=== PATIENT | male | born 1965 | race African-American/Black ===

== ENCOUNTER 2020-08-25 14:05 | Emergency (ER) | payer BC ==
[~2020-08-25] VITALS: Ht 185.4 cm; Wt 93.0 kg
--- NOTE | 2020-08-25 15:05 | RAD ---
Pelvis left hip HISTORY: Left hip pain with popping and grinding AP view the pelvis obtained as well as AP and frog-leg views left hip There is prior right hip total arthroplasty. There is moderate degenerative changes of the L4-5 lumba r spine. The remaining visualized osseous structures appear normal. IMPRESSION: No acute findings. Electronically signed by: Diaz Solorio III, MD (08/25/2020 3:02 PM) [facility]
[2020-08-25] MEDS ORDERED: HYDR-2761 PO (15:29)
--- NOTE | 2020-08-25 15:29 | ED.ADGEN ---
Past Medical History Past Medical History: No Pertinent History Past Surgical History: Knee Replacement Smoking Status: Never Smoker Alcohol Use: None General Adult EDM: Chief Complaint: HIP PAIN HPI: HPI: Patient is a 54 year old male who presents emergency department with complaints of left hip pain. Patient states that his hip has been aching a lot recently. He states that he feels it pop and grind at times. He denies any new injury or fall. The patient denies any saddle anesthesia. He states that at times the lateral aspect of his left foot feels numb he currently denies any decreased sensation. The patient denies any swelling or bruising to the affected area. He currently rates the pain a 10 out of 10 on the pain scale, he denies any alleviating factors, the pain is worse with movement. Review of Systems: Review of Systems: Complete ROS is negative unless otherwise noted in HPI. Allergies: Allergies: Allergies Coded Allergies Type Severity Reaction Last Updated Verified No Known Drug Allergies 08/25/20 No Physical Exam: PE: See Above Constitutional: Well developed, well nourished, no acute distress, non-toxic appearance. [] HENT: Normocephalic, atraumatic, bilateral external ears normal, nose normal. [] Eyes: PERRLA, EOMI, conjunctiva normal, no discharge. [] Neck: Normal range of motion, no stridor. [] Cardiovascular:Heart rate regular rhythm Lungs & Thorax: Respirations even and unlabored, no retractions, no respiratory distress Skin: Warm, dry, no erythema, no rash. [] Extremities: LLE: No bony tenderness or obvious deformity, no cyanosis, ROM intact, no edema. [] Neurologic: Alert and oriented X 3, no focal deficits noted. [] Psychologic: Affect normal, judgement normal, mood normal. [] Current Patient Data: Vital Signs: Vital Signs Date Time Temp Pulse Resp B/P (MAP) Pulse Ox O2 Delivery O2 Flow Rate FiO2 08/25/20 15:35 92 16 171/112 (131) 99 Room Air 08/25/20 14:26 98.0 98.0 EKG: EKG: [] Heart Score: Risk Factors: Risk Factors: DM, Current or recent (<one month) smoker, HTN, HLP, family history of CAD, obesity. Risk Scores: Score 0 - 3: 2.5% MACE over next 6 weeks - Discharge Home Score 4 - 6: 20.3% MACE over next 6 weeks - Admit for Clinical Observation Score 7 - 10: 72.7% MACE over next 6 weeks - Early Invasive Strategies Radiology/Procedures: Radiology/Procedures: PROCEDURE: HIP LEFT 2V WITH PELVIS Pelvis left hip HISTORY: Left hip pain with popping and grinding AP view the pelvis obtained as well as AP and frog-leg views left hip There is prior right hip total arthroplasty. There is moderate degenerative changes of the L4-5 lumbar spine. The remaining visualized osseous structures appear normal. IMPRESSION: No acute findings. [] Course & Med Decision Making: Course & Med Decision Making Pertinent Labs and Imaging studies reviewed. (See chart for details) [] Dragon Disclaimer: Dragon Disclaimer: This electronic medical record was generated, in whole or in part, using a voice recognition dictation system. Departure Departure Impression: Primary Impression: Left hip pain Additional Impression: Hypertension Disposition: 01 DC HOME SELF CARE/HOMELESS Condition: STABLE Referrals: NO PCP (PCP) AMIE EMERY MD Patient Instructions: Hip Pain Additional Instructions: Fill the prescription and take it as directed for severe pain. Can take Tylenol and ibuprofen as needed for mild to moderate pain. Follow-up with Dr. Emery for further evaluation and treatment, return to the ER if symptoms worsen. Follow up with a primary care doctor for further treatment of hypertension. [facility] [address] [place] [address] [facility] [address] [place] [address] [facility] [address] [facility] [place] [address] [facility] [address] [place] [address] [facility] [address] [place] [address] [facility] [address] [place] [address] [facility] [address] [place] [address] [facility] [address] [place] [address] [facility] [address] [place] [address] [facility] [address] [place] [address] Scripts Hydrocodone Bit/Acetaminophen (HYDROCODONE-APAP 5-325 ) 1 Tab Tablet 0.5-1 TAB PO PRN Q6HRS PRN for SEVERE PAIN 7-10, #4 TAB 0 Refills Prov: ALEM HILL PARK MANAGER 08/25/20 Problem Qualifiers Additional Impression: Hypertension Hypertension type: unspecified Qualified Codes: I10 - Essential (primary) hypertension ALEM HILL PARK MANAGER Aug 25, 2020 15:29
[2020-08-25 15:35] VITALS: BP 171/112
== END 2020-08-25 15:40 | disposition home or self-care (01) ==
LOC: ER 14:05
DX: M25.552 Pain in left hip (principal); I10 Essential (primary) hypertension
CPT/HCPCS: 73502; 99283

== ENCOUNTER → 2021-09-06 | Outpatient (CLI) | payer BC ==
[~2021-09-06] MED LIST: HYDR-2761 PO
--- NOTE | 2021-09-06 13:12 | KCIC ---
EXAM: Pelvis and left hip, 2 views. HISTORY: Pain. COMPARISON: 08/25/2020 FINDINGS: A frontal view of the pelvis and frog-leg view left hip are obtained. There is severe left hip joint space narrowing with degenerative subchondral sclerosis, subchondral cyst formation, margin al spurring and flattening of the superior articular aspect of the acetabulum and femoral head. There is a right hip arthroplasty in expected position. There is degenerative change and scoliosis involvi ng the visualized lower lumbar spine. IMPRESSION: 1. Severe left hip osteoarthritis with associated bony remodeling. This has progressed compared to th e prior exam. 2. Right hip arthroplasty in expected position. 3. Multilevel degenerative change involving the lumbar spine. Electronically signed by: Liliana Gudino MD (09/06/2021 1:10 PM) [id number]
--- NOTE | 2021-09-06 13:14 | KCIC ---
EXAM: Lumbar spine, 5 views. HISTORY: Radiculopathy. COMPARISON: None. FINDINGS: 5 views of the lumbar spine are obtained. There is a mild anterior wedge deformity of T12. This may be subacute or chronic in etiology. There is mild lumbar scoliosis and multilevel listhesis. There is severe degenerative endplate remodeling with disc space narrowing and osteophytosis at L1-L 5. There is relative sparing of the disc space at L5-S1. There is multilevel facet arthropathy. There is left hip joint space narrowing with degenerative subchondral sclerosis, subchondral cyst formatio n, spurring and flattening of the superior articular aspect of the femoral head and acetabulum. There is partial visualization of a right hip arthroplasty. IMPRESSION: 1. Multilevel degenerative change involving the lumbar spine, described in detail above. 2. Mild anterior wedge deformity of T12. Given lucency along the inferior endplate at this level, thi s may be subacute or chronic. Correlate for pain in this location. 3. Severe left hip osteoarthritis with associated bony remodeling. 4. Right hip arthroplasty. Electronically signed by: Liliana Gudino MD (09/06/2021 1:12 PM) [id number]
== END ==
LOC: KCIC 12:32
PROVIDERS: ATTEND Family Medicine
DX: M16.12 Unilateral primary osteoarthritis, left hip (principal); M47.26 Other spondylosis with radiculopathy, lumbar region; M43.8X4 Other specified deforming dorsopathies, thoracic region; M43.16 Spondylolisthesis, lumbar region; M41.86 Other forms of scoliosis, lumbar region; M25.78 Osteophyte, vertebrae; M48.061 Spinal stenosis, lumbar region without neurogenic claudication; M46.07 Spinal enthesopathy, lumbosacral region; Z96.641 Presence of right artificial hip joint; M25.852 Other specified joint disorders, left hip
CPT/HCPCS: 72110; 73501

== ENCOUNTER → 2021-10-11 | Outpatient (CLI) | payer BC ==
[~2021-10-11] MED LIST changes: +LOSA100T14 PO
[2021-10-11 09:27] LABS: BASO % 1 % (0-3); EOS # 0.1 x10^3/uL (0.0-0.7); EOS % 2 % (0-3); HEMATOCRIT 38.1 % (39.0-53.0); HEMOGLOBIN 13.3 g/dL (13.0-17.5); LYMPH # 1.7 x10^3/uL (1.0-4.8); LYMPH % 26 % (24-48); MEAN CORPUSCULAR HEMOGLOBIN 33 pg (25-35); MEAN CORPUSCULAR HGB CONC 35 g/dL (31-37); MEAN CORPUSCULAR VOLUME 94 fL (79-100); MONO # 0.6 x10^3/uL (0.0-1.1); MONO % 9 % (0-9); NEUT % 63 % (31-73); PLATELET COUNT 284 x10^3/uL (140-400); RED BLOOD COUNT 4.04 x10^6/uL (4.30-5.70); RED CELL DISTRIBUTION WIDTH 12.3 % (11.5-14.5); WHITE BLOOD COUNT 6.4 x10^3/uL (4.0-11.0)
[2021-10-11 09:36] LABS: ALBUMIN 3.5 g/dL (3.4-5.0); CALCIUM 8.6 mg/dL (8.5-10.1); CREATININE 1.1 mg/dL (0.7-1.3); GFR 83.5; POTASSIUM 3.5 mmol/L (3.5-5.1)
[2021-10-11 09:42] LABS: PROTHROMBIN TIME PATIENT 13.1 SEC (11.7-14.0)
--- NOTE | 2021-10-11 12:43 | EKG ---
[facility] [address] [place] [address] Test Date: 2021-10-11 Test Time: 12:22:33 Pat Name: LIANET EDGE Department: Room: Gender: Ticketing Agent: RAJI : [id number] Requested By: STELLA ALVAREZ Order Number: [id number] Reading MD: Diogo Kyle Measurements Intervals [place] Rate: 90 P: 55 LA: 150 QRS: 45 QRSD: 88 T: 55 QT: 364 QTc: 449 Interpretive Statements SINUS RHYTHM Electronically Signed On 10-12-2021 15:41:16 CDT by Diogo Kyle
--- NOTE | 2021-10-11 14:02 | RAD ---
EXAM: Chest, 2 views. HISTORY: Hypertension. Preoperative evaluation. COMPARISON: None. FINDINGS: 2 views of the chest are obtained. There is no infiltrate, pleural effusion or pneumothorax . The heart is normal in size. IMPRESSION: No acute pulmonary finding. Electronically signed by: Liliana Gudino MD (10/11/2021 2:00 PM) [id number]
[2021-10-12 01:11] LABS: HEMOGLOBIN A1C 5.1 % (4.8-5.6)
== END ==
LOC: SURGPAT 12:15
PROVIDERS: ATTEND Orthopaedic Surgery Sports Medicine
DX: Z01.818 Encounter for other preprocedural examination (principal); M16.12 Unilateral primary osteoarthritis, left hip; I10 Essential (primary) hypertension
CPT/HCPCS: 36415; 71046; 80048; 82040; 82306; 83036; 85025; 85610; 85651; 85730; 87641; 93005

== ENCOUNTER 2021-10-19 08:04 | Inpatient (IN) | payer BC ==
[2021-10-13 11:38] VITALS: BP 168/106
[2021-10-19] VITALS (9 sets, daily range): BP systolic 123–155; BP diastolic 79–104
[~2021-10-19] VITALS: Ht 185.4 cm; Wt 80.9 kg
[~2021-10-19 08:04] MED LIST changes: +ACETAMINOPHEN 500 MG TABLET PO PRN; +GABAPENTIN 300 MG CAPSULE. PO ONE; +IV RINGERS,LACTATED 1000ML 1,000 ML IV SCH; +MELOXICAM 7.5 MG TABLET PO ONE; +PROCHLORPERAZINE 10 MG/2 ML VIAL. IVP PRN; +TRANEXAMIC ACID in NS IVPB 100 ML ONE; +TRANEXAMIC ACID in NS IVPB 50 ML INJ ONE; +fentaNYL PF VIAL 100 MCG/2 ML VIAL IVP PRN
[2021-10-19] MEDS: MORPHINE SULFATE 5 MG, KETOROLAC 30MG VIAL 30 MG, ROPIVacaine 0.5% PF 60 ML, EPINEPHrin... INT ART ONE ×2 (08:59→10:42)
[2021-10-19] MEDS: TRANEXAMIC ACID in NS IVPB 50 ML INJ ONE ×2 (08:59→10:42)
[2021-10-19] MEDS ORDERED: ONDANSETRON PF 4 MG/2 ML VIAL. ONE (09:03)
[2021-10-19] MEDS ORDERED: PROPOFOL 10 MG/ML (20ML) VIAL. IV ONE (09:03)
[2021-10-19] MEDS ORDERED: DEXAMETHASONE SOD PHOS 4 MG/ML VIAL ONE (09:03)
[2021-10-19] MEDS ORDERED: ROCURONIUM 50 MG/5 ML VIAL. ONE (09:03)
[2021-10-19] MEDS ORDERED: FAMOTIDINE 20 MG/2 ML VIAL ONE (09:03)
[2021-10-19] MEDS ORDERED: MIDAZOLAM HCL/PF 2 MG/2 ML VIAL. ONE (09:03)
[2021-10-19] MEDS ORDERED: fentaNYL PF VIAL 100 MCG/2 ML VIAL ONE (09:03)
[2021-10-19] MEDS ORDERED: LIDOCAINE 2% PF 5 ML VIAL. ONE (09:04)
[2021-10-19] MEDS ORDERED: 0.9 % SODIUM CHLORIDE 10 ML DISP.SYRIN. IV PRN (10:00)
[2021-10-19] MEDS ORDERED: diphenhydrAMINE 50 MG/ML VIAL IVP PRN (10:00)
[2021-10-19] MEDS ORDERED: IV DEXTROSE 5% 250 ML BAG. IV PRN (10:00)
[2021-10-19] MEDS ORDERED: DEXTROSE 50% 25 GM / 50ML DISP.SYRIN. IV PRN (10:00)
[2021-10-19] MEDS ORDERED: PROCHLORPERAZINE 5 MG TABLET. PO PRN (10:00)
[2021-10-19] MEDS ORDERED: oxyCODONE IR 5 MG TABLET PO PRN (10:00)
[2021-10-19] MEDS ORDERED: MORPHINE SULFATE 2 MG/ML INJ. IVP PRN (10:00)
[2021-10-19] MEDS ORDERED: fentaNYL PF VIAL 100 MCG/2 ML VIAL IVP PRN (10:00)
[2021-10-19] MEDS ORDERED: METOCLOPRAMIDE HCL 10 MG/2 ML VIAL. IVP PRN (10:00)
[2021-10-19] MEDS ORDERED: ZOLPIDEM 5 MG TABLET. PO PRN (10:00)
[2021-10-19] MEDS: IV NORMAL SALINE 1000ML BAG 1,000 ML IV SCH (10:00)
[2021-10-19] MEDS ORDERED: CALCIUM CARBONATE 500 MG TAB.CHEW PO PRN (10:00)
[2021-10-19] MEDS ORDERED: TRANEXAMIC ACID in NS IVPB 50 ML ONE (10:28)
--- NOTE | 2021-10-19 11:43 | PDOC4 ---
Operative Note Operative Note Date of procedure: 10/19/2021 Surgeon: Sherif Alvarez Laboratory Administrative Director: Michael Macedo, certified marine mechanic was necessary to help manipulate the leg during surgery and perform wound closure. Preoperative diagnosis: Advanced primary left hip degenerative joint disease Postoperative diagnosis: Same Procedure performed: Left total hip arthroplasty Anesthesia: General Findings: Advanced DJD of left hip Blood loss: 150 mL Complications: None Components inserted: [employer] size 6 anthology stem with a 36 mm Oxinium +4 head, 52 mm R3 acetabular shell with a 20 degree polyethylene liner directed posteriorly Reason for procedure: Patient is a very pleasant 55-year-old gentleman who had previously undergone a right total hip arthroplasty successfully and presented to my clinic with complaints of left hip pain. Clinical and radiographic evidence were consistent with the preoperative diagnosis. He requested we proceed with a left total hip arthroplasty. I discussed the risk benefits and alternatives with him and he wished to proceed. Description of procedure: Patient was greeted in the preoperative area by myself or the correct extremity was verified and marked. He was taken to the operative suite and his antibiotics were started as he was brought back. Once in the operating room he was transferred on spine to the operating room table and secured to the bed with all pressure points padded and had successful induction of a general anesthetic. He is placed in the lateral decubitus position with the left side up and all down pressure points padded including use of an axillary roll. He was secured to the bed with her hip positioning devices. Left lower extremity was prepped and draped in the usual sterile fashion we conducted our standard preoperative timeout. I then palpated marked surface anatomy and baljeet a line for my planned posterior lateral skin incision. Skin was incised with a scalpel and I dissected subcutaneous tissue with el ectrocautery and identified the fascia debby of the thigh. I incised this in line with the skin incision and bluntly split gluteus mina in line with its fibers. After this I swept bursal tissue posteriorly. I took down the quadratus and piriformis, I tagged the piriformis for later repair. The hip capsule was incised in a T-type incision and I tagged ends of this as well. I was unable to dislocate the hip. I made reproducible cautery butler at the greater lesser and center of femoral head and took measurements for offset and length. After this I palpated for the lesser trochanter and made my neck cut 1 cm proximal to this and deliver the femoral head and neck from the operative field. I then placed my anterior and posterior acetabular retractors and excised the soft tissues from the floor of the acetabulum as well as the labrum. I then began reaming encountering good punctate bleeding bony bed. After this I took down some osteophytes posteriorly. I then thoroughly irrigated the operative field and impacted my cup in position referencing the transverse acetabular ligament and crossbar attachment. I then placed a single screw into the posterior column. After this I irrigated everything out again and impacted my acetabular polyethylene liner in position. I then remove the acetabular retractors and reposition the leg adding in the proximal femoral elevator and then used the errol cutting osteotome followed by a lateralizing reamer. After that I used a canal finder. I then began broaching and broached up to a size 6 which gave a good fit and fill. I then trialed head sizes and felt he had appropriate leg length and stability. I then removed all trial components and irrigated out the femoral canal and impacted my size 6 stem in position and retrialed head sizes and selected the above combination. He had great range of motion and stability. After this the hip was reduced and I thoroughly irrigated the operative field again followed by closing the capsule with simple interrupted #2 Ethibond. Piriformis was reapproximated through drill tunnels. I then injected my periarticular mixture into the periincisional soft tissues. Fascia was closed with running #2 Quill. Inverted interrupted 2-0 Vicryl was used in a multilayered fashion followed by 3 oh strata fix for skin. Prior to wound closure all counts correct x2. No complications. Postoperative plan is to admit him to the floor where he will receive DVT and antibiotic prophylaxis as well as rehab. At the conclusion he was taken from the operative room bed to the hospital bed and transferred in gentle condition he was then taken to PACU in a stable and extubated condition. SHERIF ALVAREZ II, MD Oct 19, 2021 11:43
[2021-10-19] MEDS ORDERED: MORPHINE SULFATE 2 MG/ML INJ. ONE (11:49)
[2021-10-19] MEDS: MORPHINE SULFATE 2 MG/ML INJ. IVP PRN ×2 (11:55→12:11)
[2021-10-19] MEDS: ONDANSETRON PF 4 MG/2 ML VIAL. IVP SCH ×3 (12:00→23:57)
[2021-10-19] MEDS: ONDANSETRON ODT 4 MG TAB.RAPDIS. PO SCH ×3 (12:00→23:57)
[2021-10-19] MEDS ORDERED: HYDROmorphone 2 MG/ML INJ. ONE (12:02)
[2021-10-19] MEDS ORDERED: PROCHLORPERAZINE 10 MG/2 ML VIAL. ONE (12:05)
[2021-10-19] MEDS: HYDROmorphone 2 MG/ML INJ. IVP PRN ×3 (12:11→12:43)
--- NOTE | 2021-10-19 12:43 | RAD ---
XR PELVIS 1-2V History: Reason: post op / Spl. Instructions: / History: Technique: AP view the pelvis. Comparison: September 06, 19992009 Findings: Interval left total hip arthroplasty. Expected postoperative findings. No dislocation. No acute fract ure. Prior right hip arthroplasty. Impression: 1. Interval left total hip arthroplasty. No immediate hardware complications. Electronically signed by: Jim Galloway DO (10/19/2021 12:40 PM) [id number]
[2021-10-19] MEDS ORDERED: WARFARIN 7.5 MG TABLET. PO ONE (16:00)
[2021-10-19] MEDS: oxyCODONE IR 5 MG TABLET PO PRN ×2 (16:39→21:34)
[2021-10-19] MEDS: FERROUS SULFATE 325 MG TABLET. PO SCH (16:39)
[2021-10-20 03:00] VITALS: BP 141/89
[2021-10-20 04:28] VITALS: BP 141/89
[2021-10-20] MEDS: ONDANSETRON ODT 4 MG TAB.RAPDIS. PO SCH (04:30)
[2021-10-20] MEDS: oxyCODONE IR 5 MG TABLET PO PRN ×3 (04:30→13:53)
[2021-10-20] MEDS: ONDANSETRON PF 4 MG/2 ML VIAL. IVP SCH (04:30)
[2021-10-20] MEDS ORDERED: MAGNESIUM HYDROXIDE 2,400 MG/30 ML ORAL.SUSP. PO PRN (06:00)
[2021-10-20 06:18] LABS: PROTHROMBIN TIME PATIENT 13.2 SEC (11.7-14.0)
[2021-10-20 07:20] VITALS: BP 129/88
[2021-10-20] MEDS: FERROUS SULFATE 325 MG TABLET. PO SCH (08:37)
[2021-10-20] MEDS ORDERED: SENNOSIDES/DOCUSATE 8.6/50MG TABLET. PO SCH (09:00)
[2021-10-20] MEDS ORDERED: MULTIVITAMIN with MINERAL TABLET. PO SCH (09:00)
[2021-10-20] MEDS ORDERED: MELOXICAM 7.5 MG TABLET PO SCH (09:00)
[2021-10-20] MEDS ORDERED: ACETAMINOPHEN 500 MG TABLET PO SCH (09:00)
[2021-10-20] MEDS: IV NORMAL SALINE 1000ML BAG 1,000 ML IV SCH (10:00)
[2021-10-20 10:58] VITALS: BP 134/89
[2021-10-20] MEDS ORDERED: ONDANSETRON PF 4 MG/2 ML VIAL. IVP PRN (12:00)
[2021-10-20] MEDS ORDERED: ONDANSETRON ODT 4 MG TAB.RAPDIS. PO PRN (12:00)
--- NOTE | 2021-10-20 12:04 | SNU/HH DC ---
DISCHARGE WITH HOME HEALTH DISCHARGE INFORMATION: Discharge Date: Oct 20, 2021 Final Diagnosis: Advanced left hip primary degenerative joint disease Condition on Discharge: Stable CODE STATUS: Code Status: Full HOME HEALTH: Face to Face: I certify this patient is under my care and that I, or a nurse practitioner or physician's server service assistant working with me, had a face to face encounter that meets the physician face to face encounter requirements with this patient on []. Medical Complications: S/P Joint Replacement Prison For: Other: (Blood draws if needed) RN For Eval/Treatment: No Physical Therapy For: Evalulation/Treatment Occupational Therapy For: Evaluation/Treatment Pt Meets Homebound Status: Poor coordination w/ amb., Unsteady balance w/ amb, POST DISCHARGE ORDERS: Activity Instructions for Disc: Other, see below Weight Bearing Status after Di: As tolerated Bathing Instructions: Shower-keep dressing dry, No Tub Bath until see DIET AFTER DISCHARGE: Regular Wound/Incision Care: Ice to area for comfort, Do not change dressing Other wound/incision instructi: Posterior hip precautions FOLLOW-UP: Follow up with: Francisco Javier in 2 wks Warfarin Follow UP: Per pharmacy TREATMENT/EQUIPMENT ORDERS: Adaptive Equipment Issued: Walker CERTIFICATION STATEMENT: Certification Statement: Certification Statement: Based on the above finding, I certify that this patient is confined to the home and needs intermittent group home care, physical therapy and/or speech therapy, or continues to need occupational therapy.~ This patient is under my care, and I have initiated the establishment of the plan of care.~ This patient will be followed by myself or a community physician who will periodically review the plan of care. Home Meds Active Scripts Hydrocodone Bit/Acetaminophen (HYDROCODONE-APAP 5-325 ) 1 Tab Tablet, 0.5-1 TAB PO PRN Q6HRS PRN for SEVERE PAIN 7-10, #4 TAB 0 Refills Prov:ALEM HILL POND WORKER 08/25/20 Reported Medications Losartan Potassium (LOSARTAN POTASSIUM) 100 Mg Tablet, 100 MG PO DAILY for HYPERTENSION, TAB 10/13/21 STELLA ALVAREZ II, MD Oct 20, 2021 12:04
--- NOTE | 2021-10-20 12:05 | PDOC ---
ORTHO PROGRESS NOTES DATE: 10/20/21 TIME: 12:04 Subjective Patient is asking to go home. He has some occasional ache laterally with therapy but otherwise he feels like he is doing really well. No complaints or concerns. Normal bowel and bladder function Vitals Vital Signs Date Time Temp Pulse Resp B/P (MAP) Pulse Ox O2 Delivery O2 Flow Rate FiO2 10/20/21 10:58 97.7 76 18 134/89 (104) 95 Room Air 97.7 10/19/21 13:30 2.0 Labs Laboratory Tests Test 10/19/21 08:50 10/19/21 12:40 10/20/21 05:15 POC SARS CoV-2 Antigen Negative (NEGATIVE) Prothrombin Time 13.0 SEC (11.7-14.0) 13.2 SEC (11.7-14.0) Prothromb Time International Ratio 1.0 (0.8-1.1) 1.0 (0.8-1.1) Laboratory Tests Test 10/19/21 12:40 10/20/21 05:15 Prothrombin Time 13.0 SEC (11.7-14.0) 13.2 SEC (11.7-14.0) Prothromb Time International Ratio 1.0 (0.8-1.1) 1.0 (0.8-1.1) Notes He is awake and alert and sitting in a chair in normal close with shoes on. Dressing is intact, minimal drainage. Normal motor and sensation are present in his operative extremity Problems: (1) Degenerative joint disease of left hip Assessment and Plan We will plan on discharging him home. I am uncertain if he is going home with home health but I did fill out orders for home health discharge. He would like to do outpatient PT with [facility] group. Problem Qualifiers (1) Degenerative joint disease of left hip: Osteoarthritis type: primary Qualified Codes: M16.12 - Unilateral primary osteoarthritis, left hip STELLA ALVAREZ II, MD Oct 20, 2021 12:05
--- NOTE | 2021-10-20 12:07 | PDOC3 ---
Discharge Summary Visit Information Date of Admission: Oct 19, 2021 Date of Discharge: Oct 20, 2021 Admitting Diagnosis: Advanced primary left hip degenerative joint disease Final Diagnosis Left total hip arthroplasty Brief Hospital Course Allergies Allergies Coded Allergies Type Severity Reaction Last Updated Verified No Known Drug Allergies 10/19/21 No Vital Signs Vital Signs Date Time Temp Pulse Resp B/P (MAP) Pulse Ox O2 Delivery O2 Flow Rate FiO2 10/20/21 10:58 97.7 76 18 134/89 (104) 95 Room Air 97.7 10/19/21 13:30 2.0 Lab Results Laboratory Tests Test 10/19/21 08:50 10/19/21 12:40 10/20/21 05:15 POC SARS CoV-2 Antigen Negative (NEGATIVE) Prothrombin Time 13.0 SEC (11.7-14.0) 13.2 SEC (11.7-14.0) Prothromb Time International Ratio 1.0 (0.8-1.1) 1.0 (0.8-1.1) Laboratory Tests Test 10/19/21 12:40 10/20/21 05:15 Prothrombin Time 13.0 SEC (11.7-14.0) 13.2 SEC (11.7-14.0) Prothromb Time International Ratio 1.0 (0.8-1.1) 1.0 (0.8-1.1) Brief Hospital Course Mr. Lagunas is a 55 old [sex] who presented with [ ] Assessment Assessment He tolerated surgery well and recovered well from anesthesia. He made good progress with PT OT while inpatient. He was started on DVT and antibiotic prophylaxis. Normal bowel and bladder function were present. He was hemodynamically stable and afebrile throughout his hospital course. He was tolerating regular diet and his pain is controlled on oral pain medicine. His hospital course was very uneventful. Discharge Information Condition at Discharge: Stable Follow Up: Weeks Disposition/Orders: D/C to Home w/ HH Scheduled Losartan Potassium (Losartan Potassium) 100 Mg Tablet, 100 MG PO DAILY for HYPERTENSION, (Reported) Entered as Reported by: PORFIRIO DIEZ on 10/13/21 1720 Last Taken: Unknown Dose on 10/19/21 0600 Last Action: Last Taken Edited on 10/19/21 0844 by SANTANA HARTLEY Scheduled PRN Hydrocodone Bit/Acetaminophen (Hydrocodone-Apap 5-325 ) 1 Tab Tablet, 0.5-1 TAB PO PRN Q6HRS PRN for SEVERE PAIN 7-10, #4 Ref 0 Prescribed by: ALEM HILL APRN on 08/25/20 1529 Last Taken: Unknown Dose on 10/19/21 0600 Last Action: Last Taken Edited on 10/19/21 0844 by SANTANA HARTLEY Patient Instructions Patient Instructions He can be discharged home, he should receive physical therapy. He would be on Coumadin for 4 weeks. Posterior precautions. Okay to weight-bear as tolerated. Worrisome signs and symptoms that should prompt a phone call to my office were discussed. I will see him back in 2 weeks, sooner should a problem arise Justicifation of Admission Dx: Justifications for Admission: Justification of Admission Dx: No STELLA ALVAREZ II, MD Oct 20, 2021 12:07
--- NOTE | 2021-10-20 13:55 | NUR ---
Pharmacy Warfarin Dosing Note S:Pharmacy consulted to assist with anticoagulation therapy started 10/19/21 with target INR: 1.6 - 2.5 O:LIANET EDGE is a 55 year old M with [facility] LABS: Last INR: 1.0 Last dose of 7.5 mg given on 10/19/21 at 1636 Ongoing Drug Interactions: MOBIC A:INR of 1.0 is below desired range. Target range for this patient is: 1.6 - 2.5 P: Warfarin dose: 7.5 mg Prior to Discharge Next INR due 10/25/21 prior to PT appointment Pharmacy anticoagulation service will continue to follow, end of therapy 11/16/21 (4 weeks per progress note) JOCELYN BERNARD [facility], 10/20/21 5075
[2021-10-20] MEDS ORDERED: WARFARIN 7.5 MG TABLET. PO ONE (14:00)
--- NOTE | 2021-10-20 14:24 | NUR ---
SW following. Discussed with RN, pt from home, room air, regular diet. Discharge order for home with self care/ outpatient therapy. Pt requested SW arrange an afternoon appointment here at [facility]. SW contacted [facility] outpatient therapy and scheduled pt for a 1315 check in for 1345 appointment on Monday10/22/21. RN notified. No further SW needs.
--- NOTE | 2021-10-20 15:19 | NUR ---
Pt DC home in stable condition with belongings, accompanied by family. DC instructions, medications, and follow up instructions given and reviewed with patient. Patient denies questions. SL removed with cath intact.
[2021-10-20] MEDS ORDERED: BISACODYL 10 MG SUPP.RECT. PR PRN (16:00)
--- NOTE | 2021-10-21 14:11 | PATHOLOGY ---
[facility] Accession Number: [id number] . 01 Material submitted: . hip - LEFT HIP BONE/TISSUE GROSS ONLY. Modifiers: left . 01 Clinical history: . LEFT HIP PAIN /DJD LEFT TOTAL HIP . 02 Diagnosis: Femoral head, left total hip arthroplasty: - Advanced degenerative arthritis with focal subarticular fibrosis, bony sclerosis, and bony remodeling. (JPM:negrito; 10/21/2021) QMS 10/21/2021 0916 Local . 02 Electronically signed: . Iain Mcclain MD, Pathologist NPI- [id number] . 01 Gross description: . The specimen is received in formalin, labeled "Moisés Lagunas, left hip bone/tissue". Received is a femoral head with attached femoral neck measuring 4.9 x 4.5 x 4.9 cm in greatest dimensions. The articular surface is light cortez-yellow to dark cortez-red, smooth to roughened, and with signs of eburnation and osteophytic growth. Sectioning reveals light cortez-yellow to dark cortez-pink cut surfaces with no grossly distinct nodules or lesions. The specimen is submitted representatively in cassette A1 to A2, following decalcification.([facility]; 10/19/2021) [facility] 10/19/2021 1725 Local . 02 Pathologist provided ICD-10: M16.12 . 02 CPT . 753321, [id number] Specimen Comment: A courtesy copy of this report has been sent to [phone] Specimen Comment: Report sent to Performed at: [address], [place], [place] [id number] MD Marky Teran MD Phone: [phone] Performed at: 02 [facility] [address] [place], [place] [id number] MD Iain Mcclain MD Phone: [phone]
== END 2021-10-20 15:22 | disposition home health service (06) | DRG 470 ==
LOC: SURG 08:04 → 4 NORTH 10:04
PROVIDERS: ADMIT Orthopaedic Surgery Sports Medicine; ATTEND Orthopaedic Surgery Sports Medicine
PROC: 0SRB06Z Replacement of Left Hip Joint with Oxidized Zirconium on Polyethylene Synthetic Substitute, Open Approach (ICD-10-PCS; principal; 2021-10-19 09:30)
DX: M16.12 Unilateral primary osteoarthritis, left hip (principal); Z96.641 Presence of right artificial hip joint; Z20.822 Contact with and (suspected) exposure to COVID-19
CPT/HCPCS: 36415; 72170; 85610; 86850; 86900; 86901; 99406; A4213; A4930; C1776; J0171; J0690; J0780; J1100; J1170; J1885; J2250; J2270; J2405; J2704; J2795; J3010; J3490; 97110-GP; 97116-GP; 97530-GP; 97535-GO; G0378